=== PATIENT | male | born 1965 | race Hispanic/Latino ===

== ENCOUNTER 2018-09-17 08:14 | Emergency (ER) | payer MEDICARE ==
[~2018-09-17] VITALS: Ht 167.6 cm; Wt 135.2 kg
--- OUTSIDE RECORDS SUMMARY | 2018-09-17 08:16 | XMS REPORT ---
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 Allergies, Adverse Reactions, Alerts This patient has no known allergies or adverse reactions. Medications This patient has no known medications. Results Test Description Test Time Test Comments Text Results Atomic Results Result Comments POCT-GLUCOSE METER 2018-09-15 21:06:00 POC-GLUCOSE METER (BEAKER) (test xyqq=5254) 258 mg/dL 70-110 [address]ED AT [address] [address] [id number] 14:35:00* Test Item Value Reference Range Comments CRYOGLOBULIN (BEAKER) (test tzgm=903) Negative POCT-GLUCOSE [id number] 08:03:00* Test Item Value Reference Range Comments POC-GLUCOSE METER (BEAKER) (test qqqz=9580) 206 mg/dL 70-110 TESTED AT [address] [address] BASIC METABOLIC [id number] 05:41:00* Test Item Value Reference Range Comments SODIUM (BEAKER) (test ygdt=219) 133 meq/L 136-145 POTASSIUM (BEAKER) (test sirx=649) 5.1 meq/L 3.5-5.1 CHLORIDE (BEAKER) (test hpqx=105) 97 meq/L 98-107 CO2 (BEAKER) (test gauv=164) 27 meq/L 22-29 BLOOD UREA NITROGEN (BEAKER) (test cemr=065) 36 mg/dL 7-21 CREATININE (BEAKER) (test mntf=028) 4.78 mg/dL 0.57-1.25 GLUCOSE RANDOM (BEAKER) (test eurq=522) 257 mg/dL 70-105 CALCIUM (BEAKER) (test lymy=759) 8.8 mg/dL 8.4-10.2 EGFR (BEAKER) (test tqtt=9815) mL/min/1.73 sq m INSUFFICIENT CLINICAL DATA TO CALCULATE ESTIMATED GFR. CBC (HEMOGRAM ONLY)2018-09-15 05:08:00* Test Item Value Reference Range Comments WHITE BLOOD CELL COUNT (BEAKER) (test miqm=507) 13.7 K/ L 3.5-10.5 RED BLOOD CELL COUNT (BEAKER) (test dfle=775) 4.35 M/ L 4.63-6.08 HEMOGLOBIN (BEAKER) (test slhg=553) 10.4 GM/DL 13.7-17.5 HEMATOCRIT (BEAKER) (test nwls=793) 35.1 % 40.1-51.0 MEAN CORPUSCULAR VOLUME (BEAKER) (test bpby=741) 80.7 fL 79.0-92.2 MEAN CORPUSCULAR HEMOGLOBIN (BEAKER) (test yisb=461) 23.9 pg 25.7-32.2 MEAN CORPUSCULAR HEMOGLOBIN CONC (BEAKER) (test vgyc=396) 29.6 GM/DL 32.3-36.5 RED CELL DISTRIBUTION WIDTH (BEAKER) (test qfzv=710) 20.7 % 11.6-14.4 PLATELET COUNT (BEAKER) (test iybg=890) 222 K/CU MM 150-450 MEAN PLATELET VOLUME (BEAKER) (test ogyl=735) 12.2 fL 9.4-12.4 NUCLEATED RED BLOOD CELLS (BEAKER) (test tbgb=024) 0 /100 WBC 0-0 POCT-GLUCOSE [id number] 19:25:00* Test Item Value Reference Range Comments POC-GLUCOSE METER (BEAKER) (test xaaq=9227) 162 mg/dL 70-[address] [facility] [address] [place] [address] BASIC METABOLIC [id number] 07:46:00* Test Item Value Reference Range Comments SODIUM (BEAKER) (test ifjb=968) 129 meq/L 136-145 POTASSIUM (BEAKER) (test wzzq=139) 4.8 meq/L 3.5-5.1 CHLORIDE (BEAKER) (test giat=717) 96 meq/L 98-107 CO2 (BEAKER) (test sojl=534) 21 meq/L 22-29 BLOOD UREA NITROGEN (BEAKER) (test uhly=233) 69 mg/dL 7-21 CREATININE (BEAKER) (test meug=787) 6.41 mg/dL 0.57-1.25 GLUCOSE RANDOM (BEAKER) (test xyrm=152) 154 mg/dL 70-105 CALCIUM (BEAKER) (test limd=313) 8.4 mg/dL 8.4-10.2 EGFR (BEAKER) (test dozw=8337) mL/min/1.73 sq m INSUFFICIENT CLINICAL DATA TO CALCULATE ESTIMATED GFR. CBC W/PLT COUNT & AUTO [id number] 07:24:00* Test Item Value Reference Range Comments WHITE BLOOD CELL COUNT (BEAKER) (test mqjj=753) 9.7 K/ L 3.5-10.5 RED BLOOD CELL COUNT (BEAKER) (test kpyp=448) 4.30 M/ L 4.63-6.08 HEMOGLOBIN (BEAKER) (test qojm=172) 10.4 GM/DL 13.7-17.5 HEMATOCRIT (BEAKER) (test qwtl=401) 34.4 % 40.1-51.0 MEAN CORPUSCULAR VOLUME (BEAKER) (test uwtj=050) 80.0 fL 79.0-92.2 MEAN CORPUSCULAR HEMOGLOBIN (BEAKER) (test nsos=287) 24.2 pg 25.7-32.2 MEAN CORPUSCULAR HEMOGLOBIN CONC (BEAKER) (test trnt=358) 30.2 GM/DL 32.3-36.5 RED CELL DISTRIBUTION WIDTH (BEAKER) (test uhxi=517) 20.4 % 11.6-14.4 PLATELET COUNT (BEAKER) (test ccby=972) 201 K/CU MM 150-450 MEAN PLATELET VOLUME (BEAKER) (test qune=894) 11.8 fL 9.4-12.4 NUCLEATED RED BLOOD CELLS (BEAKER) (test rgpu=067) 0 /100 WBC 0-0 NEUTROPHILS RELATIVE PERCENT (BEAKER) (test jsox=457) 62 % LYMPHOCYTES RELATIVE PERCENT (BEAKER) (test jfre=969) 15 % MONOCYTES RELATIVE PERCENT (BEAKER) (test wbgj=403) 10 % EOSINOPHILS RELATIVE PERCENT (BEAKER) (test esth=975) 11 % BASOPHILS RELATIVE PERCENT (BEAKER) (test zphv=941) 1 % NEUTROPHILS ABSOLUTE COUNT (BEAKER) (test hdzq=812) 6.04 K/ L 1.78-5.38 LYMPHOCYTES ABSOLUTE COUNT (BEAKER) (test xqtw=640) 1.42 K/ L 1.32-3.57 MONOCYTES ABSOLUTE COUNT (BEAKER) (test xjmr=519) 0.95 K/ L 0.30-0.82 EOSINOPHILS ABSOLUTE COUNT (BEAKER) (test wnre=779) 1.09 K/ L 0.04-0.54 BASOPHILS ABSOLUTE COUNT (BEAKER) (test zdkx=468) 0.12 K/ L 0.01-0.08 IMMATURE GRANULOCYTES-RELATIVE PERCENT (BEAKER) (test jufh=5040) 1 % 0-1 POCT-GLUCOSE [id number] 21:19:00* Test Item Value Reference Range Comments POC-GLUCOSE METER (BEAKER) (test sqhb=9658) 221 mg/dL 70-110 TESTED AT [place] [id number] POCT-GLUCOSE [id number] 17:39:00* Test Item Value Reference Range Comments POC-GLUCOSE METER (BEAKER) (test pqcq=8388) 264 mg/dL 70-110 [address] AT [address] [address] POCT-GLUCOSE [id number] 12:42:00* Test Item Value Reference Range Comments POC-GLUCOSE METER (BEAKER) (test vsse=5370) 249 mg/dL 70-110 TESTED AT [address] [address] POCT-GLUCOSE [id number] 08:02:00* Test Item Value Reference Range Comments POC-GLUCOSE METER (BEAKER) (test ogiw=6755) 185 mg/dL 70-110 TESTED AT [place] [address] POCT-GLUCOSE [id number] 21:14:00* Test Item Value Reference Range Comments POC-GLUCOSE METER (BEAKER) (test rssu=8030) 343 mg/dL 70-110 Notified CHELA MARSHALL/TESTED AT [place] [address] ANG, VENOGRAM, EXTREMITY, [id number] 15:07:00Bilateral upper extremity venogram to include central veinsReason for exam:->needing AVFFINAL REPORT Bilateral upper extremity venogram, 09/11/2018. History: Renal failure, evaluation for AV shunt. Modality: Fluoroscopy. Approach: Bilateral forearm IVs. Specimen: None. Fluoroscopy Time: 0.6 min. Dose: 77.1 mGy. Technique: Contrast was injected via bilateral forearm IVs. Sequential digital images of the bilateral upper e xtremities were obtained from the wrist through the shoulder. DSA run of the sherry tral vasculature was performed. The patient tolerated the procedure well and lef t the department in the same condition. FINDINGS: Right arm:In the lower arm, the radial vein is patent. The ulnar vein is not opacified. Antecubital vei n is patent. The basilic vein is patent. The brachial veins are small and tortuo us. The cephalic draining is patent. The right axillary, subclavian, and brachio cephalic veins are patent. The SVC is patent. Left arm:In the lower arm, the r adial vein is patent. The ulnar vein is not opacified. There are numerous collat erals in the upper arm and chest wall. The left brachiocephalic vein is not visu alized and there are multiple chest wall collaterals. Impression: Bilateral upper extremity venogram performed without complication. Signed: Alec Shell MDReport Verified Date /Time: 09/12/2018 15:07:59 Reading Location: [place] [address] [employer] -GLUCOSE [id number] 12:13:00* Test Item Value Reference Range Comments POC-GLUCOSE METER (MedSocket) (test dmse=5817) 288 mg/dL 70-[address] [facility] [address] [facility] [address] POCT-GLUCOSE [id number] 07:47:00* Test Item Value Reference Range Comments POC-GLUCOSE METER (MedSocket) (test edpx=0122) 215 mg/dL 70-110 TESTED AT [place] [id number] [facility] [address] CARDIOLIPIN ANTIBODIES, IGG AND [id number] 06:46:00* Test Item Value Reference Range Comments ANTICARDIOLIPIN IGG ANTIBODY (MedSocket) (test estg=497) < GPL <20.0 ANTICARDIOLIPIN IGM ANTIBODY (MedSocket) (test dhvl=478) < MPL <20.0 Anticardiolipin IgG Result Interpretation: <20.0 GPL Normal>/=20.0 GPL PositiveAnticardiolipin IgM Result Interpretation: <20.0 MPL Normal>/=20.0 MPL PositiveBASIC METABOLIC [id number] 06:14:00* Test Item Value Reference Range Comments SODIUM (BEAKER) (test nvbj=809) 135 meq/L 136-145 POTASSIUM (BEAKER) (test bvrh=959) 4.0 meq/L 3.5-5.1 CHLORIDE (BEAKER) (test iazh=313) 100 meq/L 98-107 CO2 (BEAKER) (test ggct=044) 26 meq/L 22-29 BLOOD UREA NITROGEN (BEAKER) (test woie=437) 42 mg/dL 7-21 CREATININE (BEAKER) (test vcfc=219) 4.06 mg/dL 0.57-1.25 GLUCOSE RANDOM (BEAKER) (test kcfl=344) 229 mg/dL 70-105 CALCIUM (BEAKER) (test uuce=266) 8.0 mg/dL 8.4-10.2 EGFR (BEAKER) (test ijfx=2708) mL/min/1.73 sq m INSUFFICIENT CLINICAL DATA TO CALCULATE ESTIMATED GFR. [id number] 06:09:00* Test Item Value Reference Range Comments PHOSPHORUS (BEAKER) (test sfpp=066) 5.2 mg/dL 2.3-4.7 [id number] 06:09:00* Test Item Value Reference Range Comments MAGNESIUM (BEAKER) (test ynha=785) 1.9 mg/dL 1.6-2.6 POCT-GLUCOSE [id number] 21:14:00* Test Item Value Reference Range Comments POC-GLUCOSE METER (BEAKER) (test zrcv=5687) 315 mg/dL 70-110 Will Repeat Test/TESTED AT [facility] [address] [facility] [address] ANTITHROMBIN [id number] 20:15:00* Test Item Value Reference Range Comments ANTITHROMBIN III ACTIVITY (BEAKER) (test selj=067) 78.0 % 80.0-120.0 COMPLEMENT COMPONENT [id number] 20:11:00* Test Item Value Reference Range Comments C4 COMPLEMENT (BEAKER) (test mekt=477) 33 mg/dL 15-57 COMPLEMENT COMPONENT [id number] 20:11:00* Test Item Value Reference Range Comments C3 COMPLEMENT (BEAKER) (test ynzq=766) 135 mg/dL 82-193 C-REACTIVE [id number] 20:09:00* Test Item Value Reference Range Comments C-REACTIVE PROTEIN (BEAKER) (test ixrx=243) 1.13 mg/dL 0.00-0.50 THROMBIN [id number] 19:59:00* Test Item Value Reference Range Comments THROMBIN TIME (BEAKER) (test fawa=673) 27.1 secs 13.8-20.0 PROTHROMBIN [id number] 19:54:00* Test Item Value Reference Range Comments PROTIME (BEAKER) (test mbnt=673) 13.6 seconds 11.7-14.7 INR (BEAKER) (test aqwh=340) 1.1 <=5.9 RECOMMENDED COUMADIN/WARFARIN INR THERAPY RANGESSTANDARD DOSE: 2.0 - 3.0 Inclu cecile: PROPHYLAXIS for venous thrombosis, systemic embolization; TREATMENT for tianna ous thrombosis and/or pulmonary embolus.HIGH RISK: Target INR is 2.5-3.5 for pat ients with mechanical heart valves.POCT-GLUCOSE [id number] 18:25:00* Test Item Value Reference Range Comments POC-GLUCOSE METER (BEAKER) (test ifbv=9748) 322 mg/dL 70-110 Notified CHELA MARSHALL/TESTED AT [place] [id number] POCT-GLUCOSE [id number] 13:52:00* Test Item Value Reference Range Comments POC-GLUCOSE METER (BEAKER) (test qjtn=8726) 250 mg/dL 70-110 [address] AT [address] [address] POCT-GLUCOSE [id number] 08:23:00* Test Item Value Reference Range Comments POC-GLUCOSE METER (BEAKER) (test uays=3164) 199 mg/dL 70-110 TESTED AT [address] [address] BASIC METABOLIC [id number] 05:27:00* Test Item Value Reference Range Comments SODIUM (BEAKER) (test jzsc=716) 135 meq/L 136-145 POTASSIUM (BEAKER) (test kjwt=974) 4.3 meq/L 3.5-5.1 CHLORIDE (BEAKER) (test lfle=054) 103 meq/L 98-107 CO2 (BEAKER) (test utsd=088) 24 meq/L 22-29 BLOOD UREA NITROGEN (BEAKER) (test gjzd=467) 50 mg/dL 7-21 CREATININE (BEAKER) (test blfa=842) 4.28 mg/dL 0.57-1.25 GLUCOSE RANDOM (BEAKER) (test uupj=775) 266 mg/dL 70-105 CALCIUM (BEAKER) (test lqbi=397) 7.7 mg/dL 8.4-10.2 EGFR (BEAKER) (test xefy=3215) mL/min/1.73 sq m INSUFFICIENT CLINICAL DATA TO CALCULATE ESTIMATED GFR. [id number] 05:18:00* Test Item Value Reference Range Comments PHOSPHORUS (BEAKER) (test wtqt=700) 5.6 mg/dL 2.3-4.7 [id number] 05:18:00* Test Item Value Reference Range Comments MAGNESIUM (BEAKER) (test aceg=090) 2.0 mg/dL 1.6-2.6 POCT-GLUCOSE [id number] 21:06:00* Test Item Value Reference Range Comments POC-GLUCOSE METER (BEAKER) (test omro=1328) 334 mg/dL 70-110 Will Repeat Test/TESTED AT [place] [address] POCT-GLUCOSE [id number] 18:21:00* Test Item Value Reference Range Comments POC-GLUCOSE METER (BEAKER) (test xekr=3966) 302 mg/dL 70-110 Notified CHELA MARSHALL/TESTED AT [place] [address] POCT-GLUCOSE [id number] 12:55:00* Test Item Value Reference Range Comments POC-GLUCOSE METER (BEAKER) (test yjfz=2939) 186 mg/dL 70-110 TESTED AT [place] [address] HEPATITIS B SURFACE [id number] 11:40:00* Test Item Value Reference Range Comments HEPATITIS B SURFACE ANTIGEN (2) (BEAKER) (test jgsb=0339) Nonreactive Nonreactive POCT-GLUCOSE [id number] 08:41:00* Test Item Value Reference Range Comments POC-GLUCOSE METER (BEAKER) (test pwat=7356) 165 mg/dL 70-[address] [facility] [address] [facility] [address] BASIC METABOLIC [id number] 04:06:00* Test Item Value Reference Range Comments SODIUM (BEAKER) (test gcif=040) 139 meq/L 136-145 POTASSIUM (BEAKER) (test vglc=941) 6.0 meq/L 3.5-5.1 CHLORIDE (BEAKER) (test wjkx=256) 112 meq/L 98-107 CO2 (BEAKER) (test uutw=304) 16 meq/L 22-29 BLOOD UREA NITROGEN (BEAKER) (test nhfm=033) 95 mg/dL 7-21 CREATININE (BEAKER) (test inrw=948) 6.04 mg/dL 0.57-1.25 GLUCOSE RANDOM (BEAKER) (test aabj=440) 182 mg/dL 70-105 CALCIUM (BEAKER) (test ssvu=775) 7.9 mg/dL 8.4-10.2 EGFR (BEAKER) (test yzug=7505) mL/min/1.73 sq m INSUFFICIENT CLINICAL DATA TO CALCULATE ESTIMATED GFR. [id number] 03:59:00* Test Item Value Reference Range Comments PHOSPHORUS (BEAKER) (test gvuf=126) 7.9 mg/dL 2.3-4.7 [id number] 03:59:00* Test Item Value Reference Range Comments MAGNESIUM (BEAKER) (test bbbv=240) 2.4 mg/dL 1.6-2.6 POTASSIUM (REPEAT FOR HEMOLYSIS)2018-09-09 23:59:00* Test Item Value Reference Range Comments POTASSIUM (BEAKER) (test qicr=231) 6.3 meq/L 3.5-5.1 [id number] 23:51:00* Test Item Value Reference Range Comments PHOSPHORUS (BEAKER) (test slxf=228) 7.5 mg/dL 2.3-4.7 BASIC METABOLIC [id number] 22:49:00* Test Item Value Reference Range Comments SODIUM (BEAKER) (test misd=903) 136 meq/L 136-145 POTASSIUM (BEAKER) (test xbtu=750) 6.6 meq/L 3.5-5.1 Specimen slightly hemolyzed CHLORIDE (BEAKER) (test iecw=789) 111 meq/L 98-107 CO2 (BEAKER) (test rmkm=385) 15 meq/L 22-29 BLOOD UREA NITROGEN (BEAKER) (test xxrm=963) 95 mg/dL 7-21 CREATININE (BEAKER) (test snuj=760) 5.83 mg/dL 0.57-1.25 Specimen slightly hemolyzed GLUCOSE RANDOM (BEAKER) (test jjel=525) 134 mg/dL 70-105 CALCIUM (BEAKER) (test ikir=335) 7.8 mg/dL 8.4-10.2 EGFR (BEAKER) (test dzkk=6230) mL/min/1.73 sq m INSUFFICIENT CLINICAL DATA TO CALCULATE ESTIMATED GFR. RAD, CHEST, 1 VIEW, NON [id number] 22:34:00Reason for exam:->sobShould this be performed at the bedside?->YesFINAL REPORT AP view of the chest dated 09/09/2018 CLINICAL INFORMATION: sob Comment: Heart is enlarged. Pulmonary vasculature is unremarkable. Lungs are clear. No pulmonary infiltrate or pleural effusion is present. Impression: Cardiomegaly without pulmonary edema. Signed: Leilani Powell MDReport Verified Date/Time: 09/09/2018 22:34:49 Reading Location: [address] Consult Reading Room [id number] 22:30:00* Test Item Value Reference Range Comments MAGNESIUM (BEAKER) (test eifh=092) 2.4 mg/dL 1.6-2.6 Specimen slightly hemolyzed [id number] 22:30:00* Test Item Value Reference Range Comments PHOSPHORUS (BEAKER) (test gsmv=743) 7.7 mg/dL 2.3-4.7 Specimen slightly hemolyzed CBC W/PLT COUNT & AUTO [id number] 22:21:00* Test Item Value Reference Range Comments WHITE BLOOD CELL COUNT (BEAKER) (test mdrx=590) 7.2 K/ L 3.5-10.5 RED BLOOD CELL COUNT (BEAKER) (test hmyf=125) 4.07 M/ L 4.63-6.08 HEMOGLOBIN (BEAKER) (test myds=879) 9.8 GM/DL 13.7-17.5 HEMATOCRIT (BEAKER) (test iaid=223) 35.2 % 40.1-51.0 MEAN CORPUSCULAR VOLUME (BEAKER) (test baum=678) 86.5 fL 79.0-92.2 MEAN CORPUSCULAR HEMOGLOBIN (BEAKER) (test aegw=491) 24.1 pg 25.7-32.2 MEAN CORPUSCULAR HEMOGLOBIN CONC (BEAKER) (test kgbo=186) 27.8 GM/DL 32.3-36.5 RED CELL DISTRIBUTION WIDTH (BEAKER) (test clhf=953) 20.8 % 11.6-14.4 PLATELET COUNT (BEAKER) (test sqfk=597) 174 K/CU MM 150-450 MEAN PLATELET VOLUME (BEAKER) (test hvae=531) fL 9.4-12.4 Unable to report due to abnormal Platelet population distribution. NUCLEATED RED BLOOD CELLS (BEAKER) (test vqgh=268) 0 /100 WBC 0-0 NEUTROPHILS RELATIVE PERCENT (BEAKER) (test ndbr=331) 63 % LYMPHOCYTES RELATIVE PERCENT (BEAKER) (test dcwz=357) 15 % MONOCYTES RELATIVE PERCENT (BEAKER) (test bhcp=596) 10 % EOSINOPHILS RELATIVE PERCENT (BEAKER) (test xtoy=732) 10 % BASOPHILS RELATIVE PERCENT (BEAKER) (test bwjt=614) 2 % NEUTROPHILS ABSOLUTE COUNT (BEAKER) (test ucqy=350) 4.54 K/ L 1.78-5.38 LYMPHOCYTES ABSOLUTE COUNT (BEAKER) (test aexn=939) 1.09 K/ L 1.32-3.57 MONOCYTES ABSOLUTE COUNT (BEAKER) (test dnqu=880) 0.71 K/ L 0.30-0.82 EOSINOPHILS ABSOLUTE COUNT (BEAKER) (test dpar=198) 0.68 K/ L 0.04-0.54 BASOPHILS ABSOLUTE COUNT (BEAKER) (test wswv=011) 0.12 K/ L 0.01-0.08 IMMATURE GRANULOCYTES-RELATIVE PERCENT (BEAKER) (test ygfu=9771) 0 % 0-1 Culture, Blood [id number] 08:44:00Specimen: BloodCollected: 06/30/2016 15:55 Status: Final Last Updated: 07/06/2016 08:44 (1) ER Bed 2 Culture Result (Final) (Final) No Growth After 5 Days Culture, Blood Routine 2016-07-05 16:09:00Specimen: BloodCollected: 06/30/2016 15:40 Status: Final Last Updated: 07/05/2016 16:09 (1) ER Bed 2 Culture Result (Final) (Final) No Growth After 5 Days
--- OUTSIDE RECORDS SUMMARY | 2018-09-17 08:16 | XMS REPORT | Clinical Summary ---
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 Active sevelamer carbonate 2.4 Take 2.4 mg 6 gram PwPk by mouth. 9 Active XARELTO 10 mg Tab tablet Take 10 mg by 0 mouth Daily 9 (1800). Active QUEtiapine (SEROQUEL) 50 Take 50 mg by 0 MG tablet mouth. 9 Active LEVEMIR FLEXTOUCH U-100 0 INSULN 100 unit/mL (3 mL) 9 InPn injection Active gabapentin (NEURONTIN) TK 2 CS PO HS 3 100 MG capsule 9 Active clonazePAM (KLONOPIN) 1 TK 1 T PO BID 0 MG tablet 9 09/10/2019 Active acetaminophen (TYLENOL) Take 2 30 tablet 0 325 MG tablet tablets (650 9 mg total) by mouth every 4 (four) hours as needed for up to 360 days. 09/20/2018 Active HYDROcodone-acetaminophen Take 1 tablet 15 tablet 0 (NORCO 5-325) 5-325 mg by mouth 9 per tablet every 6 (six) hours as needed for up to 5 days. Max Daily Amount: 4 tablets Active insulin glargine (LANTUS Inject 20 15 mL 0 SOLOSTAR U-100 INSULIN) Units 9 100 unit/mL (3 mL) InPn subcutaneousl y every morning. 09/16/2019 Active NIFEdipine (ADALAT CC) 60 Take 1 tablet 30 tablet 0 MG 24 hr tablet (60 mg total) 9 by mouth daily. 09/19/2018 Active polyethylene glycol Take 17 g by 14 each 0 (GLYCOLAX) 17 gram packet mouth daily 9 for 3 days. 09/16/2019 Active venlafaxine (EFFEXOR-XR) Take 1 30 tablet 0 75 MG 24 hr capsule capsule (75 9 mg total) by mouth daily with breakfast. 09/16/2019 Active prazosin (MINIPRESS) 1 MG Take 1 30 capsule 0 capsule capsule (1 mg 9 total) by mouth nightly. Active Problems Problem Noted Date Hyperkalemia 09/10/2018 Hyperphosphatemia 09/10/2018 Depression 09/10/2018 ESRD on hemodialysis 09/10/2018 Encounters Care Team Description Date Type Specialty Massimo Guido Jr., MD 09/14/2018 Anesthesia Event Rusty Edmondson MD CREATION,A-V FISTULA 09/14/2018 Surgery 09/12/2018 Travel Kyaw Ruiz MD Henderson, MD Cholo Brady Alok, MD Zindani, Shireen, MD Hyperkalemia (Primary Dx); Hyperphosphatemia; ESRD on hemodialysis (HCC); Other depression; Severe episode of recurrent major depressive disorder, without psychotic features (HCC); Encounter regarding vascular access for dialysis for end-stage renal disease (HCC) 09/09/2018 Hospital Cardiology - Encounter 09/15/2018 09/09/2018 Orders Only General Internal Medicine 09/09/2018 Travel after 09/16/2017 Social History Date Tobacco Use Types Packs/Day Years Used Never Smoker Smokeless Tobacco: Never Used Alcohol Use Drinks/Week oz/Week Comments No Alcohol Habits Answer Date Recorded How often do you have a drink containing alcohol? Never 09/09/2018 How many drinks containing alcohol do you have on Not asked a typical day when you are drinking? How often do you have six or more drinks on one Not asked occasion? Sex Assigned at Date Recorded Not on file Industry Job Start Date Occupation Not on file Not on file Not on file Travel End Travel History Travel Start No recent travel history available. Last Filed Vital Signs Time Taken Vital Sign Reading 09/15/2018 8:18 PM CDT Blood Pressure 126/72 09/15/2018 8:18 PM CDT Pulse 90 09/15/2018 8:18 PM CDT Temperature 36.4 C (97.5 F) 09/15/2018 8:18 PM CDT Respiratory Rate 16 09/15/2018 8:18 PM CDT Oxygen Saturation 93% 09/13/2018 6:10 AM CDT Inhaled Oxygen 21% Concentration 09/15/2018 7:35 PM CDT Weight 129.2 kg (284 lb 13.4 oz) 09/09/2018 7:54 PM CDT Height 167.6 cm (5' 6") 09/15/2018 7:35 PM CDT Body Mass Index 45.97 Plan of Treatment Not on file Procedures Comments Procedure Name Priority Date/Time Associated Diagnosis POCT-GLUCOSE METER Routine 09/15/2018 8:54 PM CDT TRANSFUSION SERVICE 09/15/2018 REPORT - SCAN 5:52 PM CDT POCT-GLUCOSE METER Routine 09/15/2018 8:01 AM CDT BASIC METABOLIC PANEL (7) Routine 09/15/2018 4:32 AM CDT CBC (HEMOGRAM ONLY) Routine 09/15/2018 4:32 AM CDT POCT-GLUCOSE METER Routine 09/14/2018 7:23 PM CDT CREATION,A-V FISTULA 09/14/2018 ESRD (end stage renal 4:00 PM CDT disease) (HCC) Case Notes RIGHT UPPER EXTREMITY DIALYSIS ACCESS Special Needs REQUEST TF CASE ALREADY IN OR ABORH, MANUAL STAT 09/14/2018 9:16 AM CDT TYPE AND SCREEN, Routine 09/14/2018 AUTOMATED 6:58 AM CDT CBC W/PLT COUNT & AUTO Routine 09/14/2018 DIFFERENTIAL 6:57 AM CDT BASIC METABOLIC PANEL (7) Routine 09/14/2018 6:57 AM CDT CBC W/PLT COUNT & AUTO Routine 09/14/2018 DIFFERENTIAL 6:57 AM CDT POCT-GLUCOSE METER Routine 09/13/2018 9:11 PM CDT POCT-GLUCOSE METER Routine 09/13/2018 5:36 PM CDT POCT-GLUCOSE METER Routine 09/13/2018 12:41 PM CDT POCT-GLUCOSE METER Routine 09/13/2018 7:26 AM CDT POCT-GLUCOSE METER Routine 09/12/2018 9:01 PM CDT ULTRAFILTRATION HD CRRT Routine 09/12/2018 6:26 PM CDT POCT-GLUCOSE METER Routine 09/12/2018 12:02 PM CDT POCT-GLUCOSE METER Routine 09/12/2018 7:27 AM CDT PHOSPHORUS Routine 09/12/2018 4:51 AM CDT MAGNESIUM Routine 09/12/2018 4:51 AM CDT BASIC METABOLIC PANEL (7) Routine 09/12/2018 4:51 AM CDT CRYOGLOBULIN AP Routine 09/11/2018 11:58 PM CDT POCT-GLUCOSE METER Routine 09/11/2018 9:09 PM CDT COMPLEMENT COMPONENT C4 Routine 09/11/2018 7:12 PM CDT COMPLEMENT COMPONENT C3 Routine 09/11/2018 7:12 PM CDT THROMBIN TIME Routine 09/11/2018 7:12 PM CDT PROTHROMBIN TIME/INR Routine 09/11/2018 7:12 PM CDT C-REACTIVE PROTEIN Routine 09/11/2018 7:12 PM CDT CARDIOLIPIN ANTIBODIES, Routine 09/11/2018 IGG AND IGM 7:12 PM CDT ANTITHROMBIN III Routine 09/11/2018 7:12 PM CDT POCT-GLUCOSE METER Routine 09/11/2018 6:16 PM CDT IR VENOGRAM - EXTREMITY MEGHANA 09/11/2018 BILATERAL 5:30 PM CDT POCT-GLUCOSE METER Routine 09/11/2018 1:50 PM CDT HEMODIALYSIS INPATIENT Routine 09/11/2018 1:00 PM CDT POCT-GLUCOSE METER Routine 09/11/2018 8:21 AM CDT PHOSPHORUS Routine 09/11/2018 4:29 AM CDT MAGNESIUM Routine 09/11/2018 4:29 AM CDT BASIC METABOLIC PANEL (7) Routine 09/11/2018 4:29 AM CDT POCT-GLUCOSE METER Routine 09/10/2018 8:54 PM CDT POCT-GLUCOSE METER Routine 09/10/2018 6:16 PM CDT POCT-GLUCOSE METER Routine 09/10/2018 12:53 PM CDT HEMODIALYSIS INPATIENT Routine 09/10/2018 11:13 AM CDT HEPATITIS B SURFACE MEGHANA 09/10/2018 ANTIGEN 9:53 AM CDT POCT-GLUCOSE METER Routine 09/10/2018 8:36 AM CDT PHOSPHORUS Routine 09/10/2018 3:31 AM CDT MAGNESIUM Routine 09/10/2018 3:31 AM CDT BASIC METABOLIC PANEL (7) Routine 09/10/2018 3:31 AM CDT POTASSIUM (REPEAT FOR STAT 09/09/2018 HEMOLYSIS) 11:27 PM CDT PHOSPHORUS STAT 09/09/2018 11:27 PM CDT XR CHEST 1 VIEW STAT 09/09/2018 PORTABLE/BEDSIDE 10:20 PM CDT ECG 12-LEAD Routine 09/09/2018 10:12 PM CDT Procedure Note - Interface, External Ris In - 09/09/2018 10:34 PM CDT Ventricula r Rate 61 BPM Atrial Rate 61 BPM P-R Interval 122 ms QRS Duration 114 ms Q-T Interval 448 ms QTC Calculatio n(Bazett) 450 ms P Mendon 18 degrees R Mendon 21 degrees T Mendon 22 degrees Normal sinus rhythm Normal ECG No previous ECGs available ECG 12-LEAD STAT 09/09/2018 10:12 PM CDT CBC W/PLT COUNT & AUTO STAT 09/09/2018 DIFFERENTIAL 10:03 PM CDT MAGNESIUM STAT 09/09/2018 10:03 PM CDT PHOSPHORUS STAT 09/09/2018 10:03 PM CDT CBC W/PLT COUNT & AUTO STAT 09/09/2018 DIFFERENTIAL 10:03 PM CDT BASIC METABOLIC PANEL (7) STAT 09/09/2018 10:03 PM CDT ED ECG INTERPRETATION Routine 09/09/2018 9:48 PM CDT CRITICAL CARE Routine 09/09/2018 9:48 PM CDT after 09/16/2017 Results * POC-Glucose meter (09/15/2018 8:54 PM CDT) Only the most recent of 18 results within the time period is included. POC-Glucose Meter 258 (H)Comment: TESTED AT 70 - 110 mg/dL [facility] [address] [facility] [id number] Specimen Blood Performing Organization Address City/State/Zipcode Phone Number [facility] [address] [place] [address] [facility] * TRANSFUSION SERVICE REPORT - SCAN (09/15/2018 5:52 PM CDT) Narrative Performed At * CBC (Hemogram only) (09/15/2018 4:32 AM CDT) WBC 13.7 (H) 3.5 - 10.5 K/L [facility] RBC 4.35 (L) 4.63 - 6.08 M/L [facility] Hemoglobin 10.4 (L) 13.7 - 17.5 GM/DL [facility] Hematocrit 35.1 (L) 40.1 - 51.0 % [facility] MCV 80.7 79.0 - 92.2 fL [facility] MCH 23.9 (L) 25.7 - 32.2 pg [facility] MCHC 29.6 (L) 32.3 - 36.5 GM/DL [facility] RDW 20.7 (H) 11.6 - 14.4 % [facility] Platelets 222 150 - 450 K/CU MM [facility] MPV 12.2 9.4 - 12.4 fL [facility] nRBC 0 0 - 0 /100 WBC [facility] Specimen Blood Performing Organization Address City/State/Zipcode Phone Number [facility] [address] [place] [address] [facility] * Basic Metabolic Panel (09/15/2018 4:32 AM CDT) Only the most recent of 6 results within the time period is included. Sodium 133 (L) 136 - 145 meq/L [facility] Potassium 5.1 3.5 - 5.1 meq/L [facility] Chloride 97 (L) 98 - 107 meq/L [facility] CO2 27 22 - 29 meq/L [facility] BUN 36 (H) 7 - 21 mg/dL [facility] Creatinine 4.78 (H) 0.57 - 1.25 mg/dL [facility] Glucose 257 (H) 70 - 105 mg/dL [facility] Calcium 8.8 8.4 - 10.2 mg/dL [facility] EGFR Comment: INSUFFICIENT CLINICAL mL/min/1.73 sq m DATA TO CALCULATE ESTIMATED [facility] GFR. Specimen Blood Performing Organization Address City/State/Zipcode Phone Number [address] * ABORH, manual (09/14/2018 9:16 AM CDT) ABO Grouping O [facility] Rh Factor POS [facility] Specimen Blood Performing Organization Address City/[facility] Phone Number [address] * Type and screen, automated (09/14/2018 6:58 AM CDT) ABO/RH AUTOMATED (BEAKER) O POSITIVE [facility] Ab Scrn NEGATIVE [facility] Specimen Blood Performing Organization Address City/[facility] Phone Number [address] * CBC with platelet count + automated diff (09/14/2018 6:57 AM CDT) Only the most recent of 2 results within the time period is included. WBC 9.7 3.5 - 10.5 K/L [facility] RBC 4.30 (L) 4.63 - 6.08 M/L [facility] Hemoglobin 10.4 (L) 13.7 - 17.5 GM/DL [facility] Hematocrit 34.4 (L) 40.1 - 51.0 % [facility] MCV 80.0 79.0 - 92.2 fL [facility] MCH 24.2 (L) 25.7 - 32.2 pg [facility] MCHC 30.2 (L) 32.3 - 36.5 GM/DL [facility] RDW 20.4 (H) 11.6 - 14.4 % [facility] Platelets 201 150 - 450 K/CU MM [facility] MPV 11.8 9.4 - 12.4 fL [facility] nRBC 0 0 - 0 /100 WBC [facility] % Neutros 62 % [facility] % Lymphs 15 % [facility] % Monos 10 % [facility] % Eos 11 % [facility] % Baso 1 % [facility] # Neutros 6.04 (H) 1.78 - 5.38 K/L [facility] # Lymphs 1.42 1.32 - 3.57 K/L [facility] # Monos 0.95 (H) 0.30 - 0.82 K/L [facility] # Eos 1.09 (H) 0.04 - 0.54 K/L [facility] # Baso 0.12 (H) 0.01 - 0.08 K/L [facility] Immature 1 0 - 1 % Granulocytes-[facility] Specimen Blood Performing Organization Address City/State/Zipcode Phone Number [facility] [address] [place] [address] [facility] * ULTRAFILTRATION HD CRRT (09/12/2018 6:26 PM CDT) Narrative Performed At Aurora Cassidy RN 09/12/20186:27 PM Completed UF x3 hrs via right tunneled femoral catheter. Tolerated hd well with net UF of 4000 ml today. Report given to CHELA Ramsey. Post Treatment Vitals: Temp: 96.7 F (35.9 C) Temp Source: Oral Heart Rate: 84 Heart Rate Source: Monitor/Pulse Ox Resp: 20 BP: (!) 161/96 Lab Results Component Value Date GLUCOSE 229 (H) 09/12/2018 CALCIUM 8.0 (L) 09/12/2018 NA 135 (L) 09/12/2018 K 4.0 09/12/2018 CO2 26 09/12/2018 CL 100 09/12/2018 BUN 42 (H) 09/12/2018 CREATININE 4.06 (H) 09/12/2018 MG 1.9 09/12/2018 PHOS 5.2 (H) 09/12/2018 Lab Results Component Value Date WBC 7.2 09/09/2018 HGB 9.8 (L) 09/09/2018 HCT 35.2 (L) 09/09/2018 MCV 86.5 09/09/2018 PLT 174 09/09/2018 Lab Results Component Value Date HEPBSAG Nonreactive 09/10/2018 * Phosphorus (09/12/2018 4:51 AM CDT) Only the most recent of 5 results within the time period is included. Phosphorus 5.2 (H) 2.3 - 4.7 mg/dL [facility] Specimen Blood Performing Organization Address [facility] [place] [address] [phone] * Magnesium (09/12/2018 4:51 AM CDT) Only the most recent of 4 results within the time period is included. Magnesium 1.9 1.6 - 2.6 mg/dL [facility] Specimen Blood Performing Organization Address City/[facility]/Zipcode Phone Number [address] [address] [facility] * Cryoglobulin (09/11/2018 11:58 PM CDT) Cryoglobulin Negative [facility] Specimen Blood Performing Organization Address [facility] Phone Number [place] [phone] [place] [address] [facility] * C-Reactive Protein (09/11/2018 7:12 PM CDT) CRP 1.13 (H) 0.00 - 0.50 mg/dL [facility] Specimen Blood Performing Organization Address [facility] Phone Number [address] * Cardiolipin Antibodies, IgG and IgM (09/11/2018 7:12 PM CDT) Anticardiolipin IgG <1.6 <20.0 GPL [facility] Anticardiolipin IgM <0.2 <20.0 MPL [facility] Specimen Blood Narrative Performed At Anticardiolipin IgG Result Interpretation: <20.0 GPL Normal [facility] >/=20.0 GPL Positive Anticardiolipin IgM Result Interpretation: <20.0 MPL Normal >/=20.0 MPL Positive Performing Organization Address [facility] Phone Number [place] [phone] [place] [address] * Thrombin time (09/11/2018 7:12 PM CDT) Thrombin Time 27.1 (H) 13.8 - 20.0 secs [facility] Specimen Blood Performing Organization Address [facility] Phone Number [address] [address] [phone] [address] * Prothrombin time/INR (09/11/2018 7:12 PM CDT) Protime 13.6 11.7 - 14.7 seconds [facility] INR 1.1 <=5.9 [facility] Specimen Blood Narrative Performed At RECOMMENDED COUMADIN/WARFARIN INR THERAPY RANGES STANDARD DOSE: 2.0 - 3.0 Includes: PROPHYLAXIS for venous thrombosis, [facility] systemic embolization; TREATMENT for venous thrombosis and/or pulmonary embolus. HIGH RISK: Target INR is 2.5-3.5 for patients with mechanical heart valves. Performing Organization Address City/[facility]/Zipcode Phone Number [address] [address] [phone] [address] * Antithrombin III (09/11/2018 7:12 PM CDT) Antithrombin III 78.0 (L) 80.0 - 120.0 % [facility] Specimen Blood Performing Organization Address City/[facility] [place] [address] [phone] * Complement Component C3 (09/11/2018 7:12 PM CDT) C3 Complement 135 82 - 193 mg/dL [facility] Specimen Blood Performing Organization Address City/[facility] Phone Number [address] * Complement Component C4 (09/11/2018 7:12 PM CDT) C4 Complement 33 15 - 57 mg/dL [facility] Specimen Blood Performing Organization Address [facility] Phone Number [address] * IR Venogram - Extremity Bilateral (09/11/2018 5:30 PM CDT) Specimen Narrative Performed At [facility] Bilateral upper extremity venogram, 09/11/2018. History: Renal failure, evaluation for AV shunt. Modality: Fluoroscopy. Approach:Bilateral forearm IVs. Specimen: None. Fluoroscopy Time: 0.6 min.Dose: 77.1 mGy. Technique:Contrast was injected via bilateral forearm IVs. Sequential digital images of the bilateral upper extremities were obtained from the wrist through the shoulder. DSA run of the central vasculature was performed. The patient tolerated the procedure well and left the department in the same condition. FINDINGS: Right arm: In the lower arm, the radial vein is patent. The ulnar vein is not opacified. Antecubital vein is patent. The basilic vein is patent. The brachial veins are small and tortuous. The cephalic draining is patent. The right axillary, subclavian, and brachiocephalic veins are patent. The SVC is patent. Left arm: In the lower arm, the radial vein is patent. The ulnar vein is not opacified. There are numerous collaterals in the upper arm and chest wall. The left brachiocephalic vein is not visualized and there are multiple chest wall collaterals. Impression: Bilateral upper extremity venogram performed without complication. Signed: Alec Shell MD Report Verified Date/Time:09/12/2018 15:07:59 Reading Location: [place] [address] Angio Body Reading Room Procedure Note Interface, External Ris In - 09/12/2018 3:10 PM CDT FINAL REPORT Bilateral upper extremity venogram, 09/11/2018. History: Renal failure, evaluation for AV shunt. Modality: Fluoroscopy. Approach: Bilateral forearm IVs. Specimen: None. Fluoroscopy Time: 0.6 min. Dose: 77.1 mGy. Technique: Contrast was injected via bilateral forearm IVs. Sequential digital images of the bilateral upper extremities were obtained from the wrist through the shoulder. DSA run of the central vasculature was performed. The patient tolerated the procedure well and left the department in the same condition. FINDINGS: Right arm: In the lower arm, the radial vein is patent. The ulnar vein is not opacified. Antecubital vein is patent. The basilic vein is patent. The brachial veins are small and tortuous. The cephalic draining is patent. The right axillary, subclavian, and brachiocephalic veins are patent. The SVC is patent. Left arm: In the lower arm, the radial vein is patent. The ulnar vein is not opacified. There are numerous collaterals in the upper arm and chest wall. The left brachiocephalic vein is not visualized and there are multiple chest wall collaterals. Impression: Bilateral upper extremity venogram performed without complication. Signed: Alec Shell MD Report Verified Date/Time: 09/12/2018 15:07:59 Reading Location: [place] [address] Angio Body Reading Room Performing Organization Address City/State/Zipcode Phone Number [facility] * HEMODIALYSIS INPATIENT (09/11/2018 1:00 PM CDT) Narrative Performed At Jaz Garrison RN 09/11/20189:41 PM Pt completed4 Hrs hdtx UF [id number]. Given BP medication as ordered ( see MAR). Report given to pt primary care RN. Catheter dressing changed, labeled and secured. Send back to the room pt not in acute distress. * Hepatitis B surface antigen (09/10/2018 9:53 AM CDT) hepatitis B Surface Ag NON-REACTIVE Nonreactive [facility] Specimen Blood Performing Organization Address City/[facility]/Zipcode Phone Number [address] [address] [phone] [address] * Potassium - Repeat for Hemolysis (09/09/2018 11:27 PM CDT) Potassium 6.3 (HH) 3.5 - 5.1 meq/L [facility] Specimen Blood Performing Organization Address City/[facility]/Zipcode Phone Number [phone] [place] [address] * XR chest 1 view portable / bedside (09/09/2018 10:20 PM CDT) Specimen Narrative Performed At FINAL REPORT [facility] AP view of the chest dated 09/09/2018 CLINICAL INFORMATION: sob Comment:Heart is enlarged. Pulmonary vasculature is unremarkable. Lungs are clear. No pulmonary infiltrate or pleural effusion is present. Impression: Cardiomegaly without pulmonary edema. Signed: Leilani Powell MD Report Verified Date/Time:09/09/2018 22:34:49 Reading Location: [facility] [id number] Consult Reading Room Procedure Note Interface, External Ris In - 09/09/2018 10:39 PM CDT FINAL REPORT AP view of the chest dated 09/09/2018 CLINICAL INFORMATION: sob Comment: Heart is enlarged. Pulmonary vasculature is unremarkable. Lungs are clear. No pulmonary infiltrate or pleural effusion is present. Impression: Cardiomegaly without pulmonary edema. Signed: Leilani Powell MD Report Verified Date/Time: 09/09/2018 22:34:49 Reading Location: [facility] [id number] Consult Reading Room Performing Organization Address City/State/[facility] Phone Number [facility] * ECG 12 lead (09/09/2018 10:12 PM CDT) Specimen Narrative Performed At Ventricular Rate 61 BPM GE MUSE Atrial Rate 61 BPM P-R Interval 122 ms QRS Duration 114 ms Q-T Interval 448 ms QTC Calculation(Bazett) 450 ms P Mendon 18 degrees R Mendon 21 degrees T [place] 22 degrees Normal sinus rhythm Normal ECG No previous ECGs available Confirmed by Damon CASEY MICHAEL ([id number]) on 09/10/2018 8:23:16 AM Procedure Note Interface, External Ris In - 09/10/2018 8:23 AM CDT Ventricular Rate 61 BPM Atrial Rate 61 BPM P-R Interval 122 ms QRS Duration 114 ms Q-T Interval 448 ms QTC Calculation(Bazett) 450 ms P Mend[place] 18 degrees R Mendon 21 degrees T [place] 22 degrees Normal sinus rhythm Normal ECG No previous ECGs available Confirmed by Damon CASEY MICHAEL ([id number]) on 09/10/2018 8:23:16 AM Performing Organization Address City/[facility] Phone Number GE [facility] * ECG/EKG Interpretation (09/09/2018 9:48 PM CDT) Narrative Performed At Kyaw Ruiz MD 09/10/2018 12:04 AM ECG/EKG Interpretation Date/Time: 09/09/2018 10:32 PM Performed by: Kyaw Ruiz MD Authorized by: Kyaw Ruiz MD The ECG was interpreted by ED physician. This ECG was not compared with previous ECG(s).The ECG is interpreted as sinus rhythm. Rate is normal rate. Mendon is normal. Clinical Impression: non-specific ECGECG reviewed and does not meet STEMI criteria. Patient tolerance: Patient tolerated the procedure well with no immediate complications * CRITICAL CARE (09/09/2018 9:48 PM CDT) Narrative Performed At Kyaw Ruiz MD 09/10/2018 12:04 AM Critical Care Performed by: Kyaw Ruiz MD Authorized by: Kyaw Ruiz MD Total critical care time: 40 minutes Critical care time was exclusive of separately billable procedures and treating other patients. Critical care was necessary to treat or prevent imminent or life-threatening deterioration of the following conditions: metabolic crisis and renal failure. Critical care was time spent personally by me on the following activities: review of old charts, re-evaluation of patient's condition, pulse oximetry, ordering and review of radiographic studies, ordering and review of laboratory studies, ordering and performing treatments and interventions, obtaining history from patient or surrogate, evaluation of patient's response to treatment, examination of patient and discussions with consultants. after 09/16/2017 Insurance Payer Benefit Subscriber ID Type Phone Address Plan / Group [employer] [id number] [facility] xxxxxxxxx CARE [facility] Advance Directives For more information, please contact: [facility] [address] [place] [address] Date Inactivated Comments Code Status Date Activated 09/15/2018 11:30 PM Full Code 09/10/2018 2:12 AM This code status was determined by: Patient
--- OUTSIDE RECORDS SUMMARY | 2018-09-17 08:16 | XMS REPORT | Clinical Summary ---
Author Author [facility] Organization [facility] Address Unknown Phone Unavailable Care Team Providers Care Rivet Sorter Name Role Phone Jarad Guido MD PCP Allergies Comments Active Allergy Reactions Severity Noted Date Morphine Dermatitis 09/02/2016 Medications End Date Status Medication Sig Dispensed Refills Start Date Active insulin detemir (LEVEMIR) Inject 40 0 100 unit/mL injection Units under the skin nightly. Active insulin regular (HumuLIN Inject under 0 R U-100) 100 unit/mL the skin 3 injection (three) times a day before meals. Dose based on sliding scale Active gabapentin (NEURONTIN) Take 400 mg 0 400 mg capsule by mouth 3 (three) times a day. Active clonAZEPAM (KlonoPIN) 1 Take 1 mg by 0 MG tablet mouth 2 (two) times a day as needed for seizures. Active zolpidem (AMBIEN) 10 mg Take 10 mg by 0 tablet mouth nightly as needed for sleep. Active sertraline (ZOLOFT) 50 MG Take 50 mg by 0 tablet mouth daily. Active buPROPion XL (WELLBUTRIN Take 150 mg 0 XL) 150 MG 24 hr tablet by mouth 2 (two) times a day. Am and afternoon Active hydrALAZINE (APRESOLINE) Take 50 mg by 0 50 MG tablet mouth 3 (three) times a day. Active sucralfate (CARAFATE) 1 Take 1 g by 0 gram tablet mouth 4 (four) times a day. Active clonIDINE (CATAPRES) 0.1 Take 1 tablet 30 tablet 0 05/08/201 MG tablet (0.1 mg 7 total) by mouth every 4 (four) hours as needed for high blood pressure for up to 30 doses. Active warfarin (COUMADIN) 5 MG Take 5 mg by 0 tablet mouth daily. Active enalapril (VASOTEC) 20 MG Take 20 mg by 0 tablet mouth 2 (two) times a day. Active furosemide (LASIX) 40 mg Take 40 mg by 0 tablet mouth daily. Active metoprolol tartrate Take 25 mg by 0 (LOPRESSOR) 25 mg tablet mouth 2 (two) times a day. Take half a tablet every 12 hours Active Problems Problem Noted Date Complications, dialysis, catheter, mechanical 09/09/2016 Essential hypertension 09/03/2016 Depression 09/03/2016 Hemodialysis catheter dysfunction 09/02/2016 ESRD (end stage renal disease) 09/02/2016 Family History Medical History Relation Name Comments Diabetes Brother Diabetes Maternal Grandmother Diabetes Mother Hypertension Mother Relation Name Status Comments Brother Maternal Grandmother Mother Social History Date Tobacco Use Types Packs/Day Years Used Former Smoker Cigarettes 0.25 10 Alcohol Use Drinks/Week oz/Week Comments No Sex Assigned at Date Recorded Not on file Industry Job Start Date Occupation Not on file Not on file Not on file Travel End Travel History Travel Start No recent travel history available. Last Filed Vital Signs Not on file Plan of Treatment Health Maintenance Due Date Last Done Comments COLON CANCER SCREENING 2016 SHINGLES VACCINES (#1) 2016 INFLUENZA VACCINE 12/03/2018 Implants Device Identifier Shelf Expiration Date Model / Serial / Lot Implanted Type Area Manufactur er Bone Plate Bone Plate 10/30/2016 [id number] / / [id number] Catheter Dialysis Glidepath 14.5frx Implantabl N/A: N/A BARD 31cm Symmetric Tip - [id number] Infusion PERIPHERAL Implanted: 09/02/2016 (Quantity not Ports or VASCULAR on file) Accessorie s 11/29/2016 [id number] / / [id number] Catheter Dialysis Glidepath 14.5frx Implantabl N/A: N/A BARD 31cm Symmetric Tip - [id number] Infusion PERIPHERAL Implanted: 09/09/2016 (Quantity not Ports or VASCULAR on file) Accessorie s Results Not on fileafter 09/16/2017 Insurance Payer Benefit Subscriber ID Type Phone Address Plan / Group [employer] xxxxxxxxx HMO -AMERIVANT AGE MCR HMO Advance Directives Patient has advance care planning documents, and code status on file. For more i nformation, please contact: [facility] [address] [place] [address] Date Inactivated Comments Code Status Date Activated 09/10/2016 1:56 PM Full Code 09/03/2016 12:43 AM Code Status decision reached by: Patient 09/03/2016 12:43 AM Full Code 09/03/2016 12:36 AM Code Status decision reached by: Patient
--- NOTE | 2018-09-17 08:55 | Diagnostic Imaging Report ---
Examination: Single AP view of the chest. COMPARISON: None. INDICATION: Weakness DISCUSSION: Lungs are well-inflated and without focal consolidation, pleural effusion, or pneumothorax. Cardiomediastinal contour and pulmonary vasculature are within normal limits for portable, AP technique. No acute osseous abnormality. IMPRESSION: 1. No acute cardiopulmonary abnormalities. Signed by: Dr. Elijah Rich M.D. on 09/17/2018 8:52 AM
[2018-09-17 09:11] LABS: BASOPHILS # (AUTO) 0.1 (0.0-0.1); BASOPHILS % 0.4 % (0.0-1.0); EOSINOPHILS # (AUTO) 0.5 (0.0-0.4); EOSINOPHILS % 3.4 % (0.0-6.0); HEMATOCRIT 33.3 % (38.2-49.6); HEMOGLOBIN 10.2 g/dL (14.0-18.0); LYMPHOCYTES # (AUTO) 0.5 (1.0-3.2); LYMPHOCYTES % 3.6 % (18.0-39.1); MEAN CORPUSCULAR HEMOGLOBIN 24.8 pg (28-32); MEAN CORPUSCULAR HGB CONC 30.6 g/dL (31-35); MEAN CORPUSCULAR VOLUME 80.8 fL (81-99); MONOCYTES # (AUTO) 1.3 (0.2-0.8); MONOCYTES % 9.6 % (4.4-11.3); NEUTROPHILS # (AUTO) 11.1 (2.1-6.9); NEUTROPHILS % 81.8 % (38.7-80.0); PLATELET COUNT 185 x10e3/uL (140-360); RED BLOOD COUNT 4.12 x10e6/uL (4.3-5.7); RED CELL DISTRIBUTION WIDTH 21.2 % (11.7-14.4)
[2018-09-17 09:17] LABS: INR 0.95; PROTHROMBIN TIME 13.2 seconds (11.9-14.5)
[2018-09-17 09:24] LABS: ALBUMIN 3.5 g/dL (3.5-5.0); ALBUMIN/GLOBULIN RATIO 0.8 (0.8-2.0); ANION GAP 22.5 mmol/L (8-16); CALCIUM 8.9 mg/dL (8.4-10.2); CREATININE, SERUM 8.93 mg/dL (0.72-1.25); POTASSIUM 5.5 mmol/L (3.5-5.1)
--- NOTE | 2018-09-17 12:32 | Diagnostic Imaging Report ---
EXAMINATION: CT of the abdomen and pelvis with contrast. TECHNIQUE: Spiral CT images of the abdomen and pelvis were performed from the lung bases to the lesser trochanters after the intravenous administration of 100 cc Isovue-370. Coronal and sagittal reformatted images were obtained. COMPARISON: Chest radiograph same day CLINICAL HISTORY:Elevated LFTs, hemodialysis patient. Recent right arm fistula surgery. DISCUSSION: ABDOMEN/PELVIS: LOWER THORAX:Unremarkable. HEPATOBILIARY: No focal hepatic lesions. No intra-or extrahepatic biliary ductal dilation. Radiopaque calculus in the dependent gallbladder (series 2 image 40) no pericholecystic inflammation. SPLEEN: No splenomegaly. PANCREAS: No focal masses or ductal dilatation. ADRENALS: No adrenal nodules. KIDNEYS/URETERS: Diminutive kidneys. No hydronephrosis, calculi, or gross mass lesion. PELVIC ORGANS/BLADDER: Urinary bladder is unremarkable. High attenuation urine likely reflective of excreted intravenous contrast material. PERITONEUM/RETROPERITONEUM: No ascites. No pneumoperitoneum. LYMPH NODES: No pelvic sidewall, retroperitoneal, or mesenteric lymphadenopathy. VESSELS: Atherosclerotic calcification of the abdominal aorta without aneurysmal dilatation. Visceral branches are patent. Partially visualized right common femoral approach tunneled hemodialysis catheter terminates in the subhepatic IVC. GI TRACT: The large bowel shows no distention or wall thickening. . The appendix is not definitively identified. No right lower quadrant inflammation. No small bowel dilatation to suggest obstruction. BONES AND SOFT TISSUE: No osseous destructive lesions. Degenerative disc changes and facet arthropathy of the lumbar spine. Small fat-containing umbilical hernia. IMPRESSION: No acute intra-abdominal or pelvic CT abnormalities. Cholelithiasis without CT findings of acute cholecystitis. Right femoral approach hemodialysis catheter tip terminates in the subhepatic IVC. Diminutive kidneys in keeping with end-stage renal disease. Signed by: Dr. Elijah Rich M.D. on 09/17/2018 12:29 PM
--- NOTE | 2018-09-17 12:45 | NUR ---
SPOKE WITH ANSWERING SERVICE AT [facility], NOTIFIED OF NEED FOR TRANSPORT TO [facility] IN [facility], INFORMED OF ETA OF APPROX 30-45 MINUTES.
[2018-09-17 12:51] VITALS: BP 125/63
[2018-09-17] MEDS ORDERED: SODIUM CHLORIDE 0.9% 50ML 50 ML ONE (14:21)
[2018-09-17] MEDS ORDERED: IOPAMIDOL 370 MG/ML 200 ML INFUS..BTL INJ ONE (14:21)
== END 2018-09-17 14:00 | disposition home or self-care (01) ==
LOC: ER 08:14
DX: R53.1 Weakness (principal); N18.6 End stage renal disease; Z99.2 Dependence on renal dialysis
CPT/HCPCS: 36415; 71045; 74177; 80053; 85025; 85610; 87040; 93005; 99284; Q9967